=== PATIENT | female | born 1995 | race Caucasian/White ===

== ENCOUNTER 2020-01-09 12:09 | Outpatient (CLI) | payer BC, SELFPAY | END 2020-01-09 19:36 | disposition home or self-care (01) | LOC: SLB 12:09 | PROVIDERS: ATTEND Specialist | DX: Z11.59 Encounter for screening for other viral diseases (principal) | CPT/HCPCS: C9803; U0003 ==

== ENCOUNTER 2020-01-23 15:25 | Outpatient (CLI) | payer BC, SELFPAY | END 2020-01-23 20:09 | disposition home or self-care (01) | LOC: SLB 15:25 | PROVIDERS: ATTEND Specialist | DX: Z20.828 Contact with and (suspected) exposure to other viral communicable diseases (principal) | CPT/HCPCS: C9803; U0003 ==

== ENCOUNTER 2020-01-30 03:27 | Inpatient (IN) | payer BC, SELFPAY ==
[~2020-01-30] VITALS: Ht 154.9 cm; Wt 66.7 kg
[2020-01-30] MEDS ORDERED: OXYTOCIN/0.9 % SODIUM CHLORIDE 1,000 ML IV SCH ×2 (05:29→16:07)
[2020-01-30] MEDS ORDERED: NALOXONE HCL 0.4 MG/ML AMP (NARCAN) IVP PRN ×2 (05:30→16:15)
[2020-01-30] MEDS ORDERED: MORPHINE SULFATE 10 MG/ML VIAL IVP PRN (05:30)
[2020-01-30] MEDS: LR 1,000 ML IV SCH ×3 (05:35→14:25)
[2020-01-30 05:57] VITALS: BP_SYST 133
[2020-01-30 06:00] LABS: EOSINOPHILS # (AUTO) 0.2 K/uL (0.0-0.4); MEAN CORPUSCULAR HEMOGLOBIN 31 pg (27-31); MONOCYTES # (AUTO) 0.8 K/uL (0.0-1.0); RED BLOOD CELL COUNT(AUTO) 3.93 MIL/uL (4.2-6.2)
[2020-01-30 06:04] LABS: BASOPHILS % (AUTO) 0.4 % (0.0-2.0); EOSINOPHILS % (AUTO) 1.5 % (0.0-4.0); HEMATOCRIT 36.2 % (36-48); LYMPHOCYTES # (AUTO) 2.4 K/uL (1.0-5.5); LYMPHOCYTES % (AUTO) 19.7 % (20.5-51.5); MEAN CORPUSCULAR HGB CONC 33 % (32-36); MEAN CORPUSCULAR VOLUME 92 fL (79.0-98.0); MONOCYTES % (AUTO) 6.8 % (1.7-9.3); NEUTROPHILS # (AUTO) 8.8 K/uL (1.8-7.7); NEUTROPHILS % (AUTO) 71.6 % (40.0-70.0); PLATELET COUNT (AUTO) 159 K/uL (130-430); WHITE BLOOD COUNT (AUTO) 12.3 K/uL (4.8-10.8)
[2020-01-30] MEDS ORDERED: OXYTOCIN/0.9 % SODIUM CHLORIDE 1,000 ML IV ONE ×2 (06:06→16:07)
[2020-01-30] MEDS ORDERED: TERBUTALINE SULFATE 1 MG/ML VIAL SUBCUT ONE (06:30)
[2020-01-30] MEDS ORDERED: ROPIVACAINE HCL/PF 0.2% 200 ML ONE (11:15)
[2020-01-30] MEDS ORDERED: fentaNYL CITRATE/PF 100 MCG/2 ML AMP ONE (11:15)
[2020-01-30] MEDS ORDERED: ONDANSETRON HCL 4 MG/2 ML VIAL IVP PRN (13:41)
[2020-01-30] MEDS ORDERED: WITCH HAZEL LEAF 1 MED.PAD MED.PAD TP PRN (16:15)
[2020-01-30] MEDS ORDERED: HYDROCORTISONE 0.5%, 28.35 GM TOPICAL CREAM TP PRN (16:15)
[2020-01-30] MEDS ORDERED: METHYLERGONOVINE MALEATE 0.2 MG TABLET PO PRN (16:15)
[2020-01-30] MEDS ORDERED: HYDROcodone/ACETAMIN 5-325 MG TAB (NORCO/ VICODIN) PO PRN (16:15)
[2020-01-30] MEDS ORDERED: DIPH-TET-PERTUS Vaccine 0.5 ML VIAL (ADACEL) I.M. PRN (16:15)
[2020-01-30] MEDS ORDERED: SENNOSIDES/DOCUSATE SODIUM 1 TAB TABLET(SENOKOT-S) PO PRN (16:15)
[2020-01-30] MEDS ORDERED: RHO(D) IMMUNE GLOBULIN/MALTOSE 1500 UNITS/1.3 ML (WINHRO) IM PRN (16:15)
[2020-01-30] MEDS ORDERED: DERMOPLAST SPRAY TP PRN (16:15)
[2020-01-30] MEDS ORDERED: LANOLIN 7 GM OINT. TP PRN (16:15)
[2020-01-30] MEDS ORDERED: OXYCODONE/ACETAMINOPHEN 5-325 TABLET PO PRN ×2 (16:15)
[2020-01-30] MEDS ORDERED: ANUSOL 1 EA SUPP.RECT (PREPARATION H) RC PRN (16:15)
[2020-01-30] MEDS ORDERED: MEASLES,MUMPS&RUBELLA VACC/PF 12500 UNIT/0.5 ML VIAL SUBQ PRN (16:15)
[2020-01-30] MEDS: IBUPROFEN 600 MG TABLET PO SCH (17:24)
[2020-01-30] MEDS ORDERED: TEMAZEPAM 15 MG CAPSULE PO PRN (21:00)
[2020-01-31] MEDS: IBUPROFEN 600 MG TABLET PO SCH ×4 (00:06→16:37)
[2020-01-31] MEDS: DOCUSATE SODIUM 100 MG CAPSULE PO PRN ×2 (00:07→06:11)
[2020-01-31 07:28] LABS: BASOPHILS # (AUTO) 0.1 K/uL (0.0-0.2); BASOPHILS % (AUTO) 0.6 % (0.0-2.0); EOSINOPHILS # (AUTO) 0.2 K/uL (0.0-0.4); EOSINOPHILS % (AUTO) 1.2 % (0.0-4.0); HEMATOCRIT 28.2 % (36-48); HEMOGLOBIN 9.4 g/dL (12.0-16.0); LYMPHOCYTES % (AUTO) 14.7 % (20.5-51.5); MEAN CORPUSCULAR HEMOGLOBIN 31 pg (27-31); MEAN CORPUSCULAR HGB CONC 34 % (32-36); MEAN CORPUSCULAR VOLUME 93 fL (79.0-98.0); MONOCYTES # (AUTO) 0.7 K/uL (0.0-1.0); MONOCYTES % (AUTO) 5.2 % (1.7-9.3); NEUTROPHILS # (AUTO) 10.8 K/uL (1.8-7.7); NEUTROPHILS % (AUTO) 78.3 % (40.0-70.0); PLATELET COUNT (AUTO) 128 K/uL (130-430); RED BLOOD CELL COUNT(AUTO) 3.04 MIL/uL (4.2-6.2); RED CELL DISTRIBUTION WIDTH 12.9 % (9.0-15.0); WHITE BLOOD COUNT (AUTO) 13.8 K/uL (4.8-10.8)
[2020-01-31] MEDS ORDERED: MINERAL OIL 30 ML UDC PO ONE (08:30)
== END 2020-01-31 17:00 | disposition home or self-care (01) | DRG 807 ==
LOC: SPU 05:10
PROVIDERS: ADMIT Specialist; ATTEND Specialist
PROC: 10E0XZZ Delivery of Products of Conception, External Approach (ICD-10-PCS; principal; 2020-01-30)
PROC: 3E033VJ Introduction of Other Hormone into Peripheral Vein, Percutaneous Approach (ICD-10-PCS; 2020-01-30)
PROC: 3E0R3BZ Introduction of Anesthetic Agent into Spinal Canal, Percutaneous Approach (ICD-10-PCS; 2020-01-30)
PROC: 00HU33Z Insertion of Infusion Device into Spinal Canal, Percutaneous Approach (ICD-10-PCS; 2020-01-30)
PROC: 0HQ9XZZ Repair Perineum Skin, External Approach (ICD-10-PCS; 2020-01-30)
DX: O69.81X0 Labor and delivery complicated by cord around neck, without compression, not applicable or unspecified (principal); Z37.0 Single live birth; O70.0 First degree perineal laceration during delivery; Z3A.39 39 weeks gestation of pregnancy
CPT/HCPCS: 36415; 85025; 86592; 86886; 86900; 86901; J2405; J2590; J3010; J7120

== ENCOUNTER 2022-07-11 10:13 | Inpatient (IN) | payer BC ==
[~2022-07-11] VITALS: Ht 154.9 cm; Wt 64.0 kg
[2022-07-11] MEDS ORDERED: OXYTOCIN/0.9 % SODIUM CHLORIDE 1,000 ML IV SCH ×2 (10:45→22:15)
[2022-07-11] MEDS ORDERED: LR 1,000 ML IV ONE ×2 (10:45→16:45)
[2022-07-11] MEDS ORDERED: TERBUTALINE SULFATE 1 MG/ML VIAL SUBCUT ONE (10:45)
[2022-07-11] MEDS ORDERED: ROPIVACAINE HCL/PF 0.2% 0 ML ONE (11:02)
[2022-07-11 11:08] LABS: BASOPHILS # (AUTO) 0.1 K/uL (0.0-0.2); BASOPHILS % (AUTO) 0.6 % (0.0-2.0); EOSINOPHILS % (AUTO) 0.3 % (0.0-4.0); HEMATOCRIT 36.5 % (36-48); HEMOGLOBIN 12.1 g/dL (12.0-16.0); LYMPHOCYTES # (AUTO) 1.6 K/uL (1.0-5.5); LYMPHOCYTES % (AUTO) 13.3 % (20.5-51.5); MEAN CORPUSCULAR HEMOGLOBIN 30 pg (27-31); MEAN CORPUSCULAR HGB CONC 33 % (32-36); MEAN CORPUSCULAR VOLUME 91 fL (79.0-98.0); MONOCYTES # (AUTO) 0.7 K/uL (0.0-1.0); MONOCYTES % (AUTO) 6.2 % (1.7-9.3); NEUTROPHILS # (AUTO) 9.5 K/uL (1.8-7.7); NEUTROPHILS % (AUTO) 79.6 % (40.0-70.0); PLATELET COUNT (AUTO) 221 K/uL (130-430); RED BLOOD CELL COUNT(AUTO) 3.99 MIL/uL (4.2-6.2); RED CELL DISTRIBUTION WIDTH 12.9 % (9.0-15.0); WHITE BLOOD COUNT (AUTO) 11.9 K/uL (4.8-10.8)
[2022-07-11] MEDS: LR 1,000 ML IV SCH ×2 (11:18→19:24)
[2022-07-11 12:28] VITALS: BP_SYST 111
[2022-07-11] MEDS ORDERED: fentaNYL CITRATE/PF 100 MCG/2 ML AMP ONE (14:24)
[2022-07-11] MEDS ORDERED: ROPIVACAINE HCL/PF 0.2% 200 ML ONE (14:24)
[2022-07-11] MEDS ORDERED: LIDOCAINE/EPI MPF 1%1:200000 30 ML VIAL ONE (14:25)
[2022-07-11] MEDS ORDERED: ePHEDrine sulfate 50 MG/ML VIAL ONE ×2 (14:48→14:49)
[2022-07-11] MEDS ORDERED: ROPIVACAINE HCL EP ONE ×4 (16:45)
[2022-07-11] MEDS ORDERED: LIDOCAINE/EPI MPF 1%1:200000 30 ML VIAL EP ONE (16:45)
[2022-07-11] MEDS ORDERED: ePHEDrine sulfate 50 MG/ML VIAL IVP PRN (16:45)
[2022-07-11] MEDS ORDERED: FENTANYL CITRATE EP ONE ×4 (16:45)
[2022-07-11] MEDS ORDERED: LIDOCAINE PF 1% 30ML(POUR BTL) INJ ONE (20:00)
[2022-07-11] MEDS ORDERED: NALOXONE HCL 0.4 MG/ML AMP (NARCAN) ONE (20:00)
[2022-07-11] MEDS ORDERED: LIGHT MINERAL OIL 10 ML VIAL MC ONE (20:00)
[2022-07-11] MEDS ORDERED: ONDANSETRON HCL 4 MG/2 ML VIAL IVP PRN (20:15)
[2022-07-11] MEDS ORDERED: TEMAZEPAM 15 MG CAPSULE PO PRN (21:00)
[2022-07-11] MEDS ORDERED: METHYLERGONOVINE MALEATE 0.2 MG TABLET PO PRN (22:15)
[2022-07-11] MEDS ORDERED: RHO(D) IMMUNE GLOBULIN/MALTOSE 1500 UNITS/1.3 ML (WINHRO) IM PRN (22:15)
[2022-07-11] MEDS ORDERED: OXYCODONE/ACETAMINOPHEN 5-325 TABLET PO PRN ×2 (22:15)
[2022-07-11] MEDS ORDERED: NALOXONE HCL 0.4 MG/ML AMP (NARCAN) IVP PRN (22:15)
[2022-07-11] MEDS ORDERED: DIPHTH,PERTUSS(ACELL),TET VAC 0.5 ML VIAL (Tdap) I.M. PRN (22:15)
[2022-07-11] MEDS ORDERED: HYDROCORTISONE 0.5% CREAM 28.4 GM CREAM.GM. TP PRN (22:15)
[2022-07-11] MEDS ORDERED: HYDROcodone/ACETAMIN 5-325 MG TAB (NORCO/ VICODIN) PO PRN (22:15)
[2022-07-11] MEDS ORDERED: MEASLES,MUMPS&RUBELLA VACC/PF 12500 UNIT/0.5 ML VIAL SUBQ PRN (22:15)
[2022-07-11] MEDS ORDERED: LANOLIN 7 GM OINT. TP PRN (22:15)
[2022-07-11] MEDS ORDERED: DERMOPLAST SPRAY TP PRN (22:15)
[2022-07-11] MEDS ORDERED: OXYTOCIN/0.9 % SODIUM CHLORIDE 1,000 ML IV ONE (22:15)
[2022-07-11] MEDS ORDERED: ANUSOL 1 EA SUPP.RECT (PREPARATION H) RC PRN (22:15)
[2022-07-11] MEDS ORDERED: WITCH HAZEL LEAF 1 MED.PAD MED.PAD TP PRN (22:15)
[2022-07-12] MEDS: IBUPROFEN 600 MG TABLET PO SCH ×4 (00:16→18:49)
[2022-07-12 08:42] LABS: BASOPHILS # (AUTO) 0.1 K/uL (0.0-0.2); BASOPHILS % (AUTO) 0.3 % (0.0-2.0); EOSINOPHILS % (AUTO) 0.3 % (0.0-4.0); HEMATOCRIT 32.9 % (36-48); HEMOGLOBIN 10.9 g/dL (12.0-16.0); LYMPHOCYTES # (AUTO) 1.7 K/uL (1.0-5.5); LYMPHOCYTES % (AUTO) 9.3 % (20.5-51.5); MEAN CORPUSCULAR HEMOGLOBIN 31 pg (27-31); MEAN CORPUSCULAR HGB CONC 33 % (32-36); MEAN CORPUSCULAR VOLUME 92 fL (79.0-98.0); MONOCYTES # (AUTO) 1.1 K/uL (0.0-1.0); MONOCYTES % (AUTO) 6.2 % (1.7-9.3); NEUTROPHILS # (AUTO) 15.2 K/uL (1.8-7.7); NEUTROPHILS % (AUTO) 83.9 % (40.0-70.0); PLATELET COUNT (AUTO) 187 K/uL (130-430); RED BLOOD CELL COUNT(AUTO) 3.56 MIL/uL (4.2-6.2); RED CELL DISTRIBUTION WIDTH 12.8 % (9.0-15.0); WHITE BLOOD COUNT (AUTO) 18.1 K/uL (4.8-10.8)
[2022-07-12] MEDS ORDERED: DOCUSATE SODIUM 100 MG CAPSULE PO SCH (09:00)
[2022-07-12] MEDS ORDERED: SENNOSIDES/DOCUSATE SODIUM 1 TAB TABLET(SENOKOT-S) PO SCH (21:00)
== END 2022-07-12 22:30 | disposition home or self-care (01) | DRG 806 ==
LOC: SPU 10:33
PROVIDERS: ADMIT Specialist; ATTEND Specialist
PROC: 10E0XZZ Delivery of Products of Conception, External Approach (ICD-10-PCS; principal; 2022-07-11)
PROC: 3E0R3BZ Introduction of Anesthetic Agent into Spinal Canal, Percutaneous Approach (ICD-10-PCS; 2022-07-11)
PROC: 00HU33Z Insertion of Infusion Device into Spinal Canal, Percutaneous Approach (ICD-10-PCS; 2022-07-11)
DX: O69.1XX0 Labor and delivery complicated by cord around neck, with compression, not applicable or unspecified (principal); D62 Acute posthemorrhagic anemia; Z37.0 Single live birth; Z20.822 Contact with and (suspected) exposure to COVID-19; O32.6XX0 Maternal care for compound presentation, not applicable or unspecified; Z3A.38 38 weeks gestation of pregnancy
CPT/HCPCS: 36415; 81002; 85025; 86592; 86886; 86900; 86901; 94760; J2001; J2310; J2405; J2590; J3010